=== PATIENT | female | born 1985 ===

== ENCOUNTER 2018-10-06 18:18 | Inpatient (IN) | payer OTHER ==
[2018-10-06] MEDS ORDERED: Morphine 4 MG/ML VIAL IVP STA (20:24)
[2018-10-06] MEDS ORDERED: Sodium Chloride 0.9% 1,000 ML IV STA (20:25)
[2018-10-06] MEDS ORDERED: Iohexol 300 100 ML IJ ONE (20:41)
[2018-10-06] MEDS ORDERED: Sodium Chloride 0.9% 50 ML IV ONE (20:42)
--- NOTE | 2018-10-06 20:48 | ED PDOC ---
HPI: Abdomen Time Seen by Provider: 10/06/18 20:07 Chief Complaint (Nursing): Alcohol Ingestion Chief Complaint (Provider): Abdominal Pain History Per: Patient History/Exam Limitations: no limitations Onset/Duration Of Symptoms: Days (x3) Current Symptoms Are (Timing): Still Present Additional Complaint(s): 33 y/o female with a PMHx of alcohol related pancreatitis presents to the ED for abdominal pain, onset three days ago. Patient reports pain is located in the epigastric area, radiating to the back. Patient reports abdominal pain is constant, worsening and associated with vomiting. Patient admits to drinking alcohol Thursday just prior to onset of symptoms Thursday morning. Denies diarrhea, fever and urinary symptoms. PMD: Howard Levi Past Medical History Reviewed: Historical Data, Nursing Documentation, Vital Signs Vital Signs: Last Vital Signs Temp 98.6 F 10/06/18 19:33 Pulse 130 H 10/06/18 19:33 Resp 20 10/06/18 19:33 BP 141/95 H 10/06/18 19:33 Pulse Ox 100 10/06/18 19:33 - Medical History PMH: Pancreatitis, Pneumonia Denies: Chronic Kidney Disease - Surgical History Surgical History: No Surg Hx - Family History Family History: States: Unknown Family Hx - Home Medications Home Medications: Ambulatory Orders Medication Instructions Recorded RX: No Known Home Med 10/07/18 - Allergies Allergies/Adverse Reactions: Allergies Allergy/AdvReac Type Severity Reaction Status Date / Time No Known Allergies Allergy Verified 09/11/15 16:48 Review of Systems ROS Statement: Except As Marked, All Systems Reviewed And Found Negative Gastrointestinal: Positive for: Vomiting, Abdominal Pain. Negative for: Diarrhea Genitourinary Female: Negative for: Dysuria, Frequency, Hematuria Physical Exam - Reviewed Nursing Documentation Reviewed: Yes Vital Signs Reviewed: Yes - Physical Exam Appears: Positive for: Uncomfortable Head Exam: Positive for: ATRAUMATIC Skin: Positive for: Normal Color, Warm, Dry Eye Exam: Positive for: Normal appearance, EOMI, PERRL ENT: Positive for: Normal ENT Inspection Neck: Positive for: Normal, Painless ROM Cardiovascular/Chest: Positive for: Tachycardia. Negative for: Murmur Respiratory: Positive for: Normal Breath Sounds. Negative for: Respiratory Distress Gastrointestinal/Abdominal: Positive for: Tenderness (Epigastric and LUQ tenderness) Back: Positive for: Normal Inspection. Negative for: L CVA Tenderness, R CVA Tenderness, Vertebral Tenderness Extremity: Positive for: Normal ROM. Negative for: Deformity Neurologic/Psych: Positive for: Alert, Oriented. Negative for: Motor/Sensory Deficits - Laboratory Results Result Diagrams: 10/08/18 04:30 10/08/18 04:30 - ECG O2 Sat by Pulse Oximetry: 100 (RA) Pulse Ox Interpretation: Normal Medical Decision Making Medical Decision Making: Time: 2044 Impression: Abdominal pain and vomiting Differentials include but not limited to acute pancreatitis, gastritis, calvin cysititis, other conditions are considered but not listed. Plan: -- CT Abd/Pelvis IV Contrast -- CMP -- Lipase -- ED Urine Dipstick -- CBC with Differentials -- Morphine 2 mg IVP -- Sodium chloride 0.9% IV 1000 mls/hr -- Zofran [address] RESULTS FINDINGS: LUNG BASES: PULMONARY BASE IS WELL AERATED. LIVER: LIVER, GALLBLADDER, SPLEEN, AND ADRENAL GLANDS UNREMARKABLE. GALLBLADDER AND BILE DUCTS: The gallbladder appears within normal limits. No radioopaque gallstones are seen. No biliary ductal dilatation is evident. PANCREAS: PANCREATIC HEAD AND UNCINATE PROCESS SURROUNDING INFLAMMATORY CHANGES AND INTERNAL EDEMATOUS CHANGES. SPLEEN: Unremarkable. ADRENAL GLANDS: Unremarkable. KIDNEYS, URETERS, AND BLADDER: The kidneys appear within normal limits. There is no hydronephrosis or hydroureter. No urinary calculi are seen. STOMACH AND BOWEL: VERY PROMINENT COLONIC SUBMUCOSAL FAT STRIPE SUGGESTING A COLITIS. APPENDIX: No evidence of acute appendicitis on CT examination. PERITONEUM: NO ASCITES. LYMPH NODES: No lymphadenopathy is evident. VASCULATURE: SPLENIC VEIN-PORTAL VEIN PATENT BONES: No aggressive appearing osseous lesion. No acute osseous pathology evident. IMPRESSION: 1. PANCREATIC HEAD AND UNCINATE PROCESS SURROUNDING INFLAMMATORY CHANGES AND INTERNAL EDEMATOUS CHANGES. 2. SPLENIC VEIN-PORTAL VEIN PATENT 3. VERY PROMINENT COLONIC SUBMUCOSAL FAT STRIPE SUGGESTING A COLITIS. 4. LIVER, GALLBLADDER, SPLEEN, AND ADRENAL GLANDS UNREMARKABLE. 5. NO ASCITES. 6. PULMONARY BASE IS WELL AERATED. 7. PANCREATITIS AND PANCREATIC HEAD AND UNCINATE PROCESS. Electronically signed on Oct 06, 2018 9:45:50 PM EST by: Nelson Gilmore M.D., Certified by [facility] [id number] Cruz for admission to his service as private patient. [address] aTy who agrees with management. Scribe Attestation: Documented by Nolvia Ibrahim, acting as a scribe for Mikaela Villareal MD. Provider Scribe Attestation: All medical record entries made by the Scribe were at my direction and personally dictated by me. I have reviewed the chart and agree that the record accurately reflects my personal performance of the history, physical exam, medical decision making, and the department course for this patient. I have also personally directed, reviewed, and agree with the discharge instructions and disposition. Disposition - Clinical Impression Clinical Impression: Alcohol abuse, Acute alcoholic pancreatitis - Patient ED Disposition Is Patient to be Admitted: Yes Discussed With : Oumar Cruz Doctor Will See Patient In The: Hospital Counseled Patient/Family Regarding: Studies Performed, Diagnosis - Disposition Disposition Time: 22:00 Condition: FAIR - Pt Status Changed To: Hospital Disposition Of: Inpatient - Admit Certification Admit to Inpatient:: After my assessment, the patient will require hospitalization for at least two midnights. This is because of the severity of symptoms shown, intensity of services needed, and/or the medical risk in this patient being treated as an outpatient. - POA Present On Arrival: None
[2018-10-06 20:51] LABS: BASO # 0.1 K/uL (0.0-0.2); BASO % 0.8 % (0.0-2.0); EOS # 0.1 K/uL (0.0-0.7); EOS % 0.6 % (0.0-4.0); HEMOGLOBIN 12.7 g/dL (12.0-16.0); LYMPH # 1.1 K/uL (1.0-4.3); MEAN CELL VOLUME 90.6 fl (81.0-99.0); MEAN CORPUSCULAR HEMOGLOBIN 29.8 pg (27.0-31.0); MEAN CORPUSCULAR HGB CONC 32.9 g/dL (33.0-37.0); MEAN PLATELET VOLUME 6.8 fl (7.2-11.7); MONO # 0.5 K/uL (0.0-0.8); MONO % 3.8 % (0.0-10.0); NEUT # 10.6 K/uL (1.8-7.0); NEUT % 85.8 % (50.0-75.0); PLATELET COUNT 307 K/uL (130-400); RBC 4.26 Mil/uL (3.80-5.20); RED CELL DISTRIBUTION WIDTH 14.9 % (11.5-14.5); WHITE BLOOD COUNT 12.4 K/uL (4.8-10.8)
[2018-10-06] MEDS ORDERED: Morphine 4 MG/ML VIAL ONE ×2 (20:56→23:20)
[2018-10-06 20:59] LABS: ALB/GLOB RATIO 1.1 (1.0-2.1); ALBUMIN 4.2 g/dL (3.5-5.0); ALT/SGPT 27 U/L (9-52); AST/SGOT 32 U/L (14-36); BLOOD UREA NITROGEN 8 mg/dl (7-17); CALCIUM 9.8 mg/dL (8.4-10.2); GFR NON-AFRICAN AMERICAN > 60; LIPASE 367 U/L (23-300)
[2018-10-06] MEDS ORDERED: Lactated Ringer's 1,000 ML IV SCH (22:30)
[2018-10-06 22:39] LABS: BANDS 1 % (0-2); BASOPHIL 1 % (0-2); EOSINOPHIL 1 % (0-7); LYMPHOCYTE 12 % (20-50); MONOCYTE 5 % (0-10); NEUTROPHIL 80 % (42-75); TOTAL CELLS COUNTED 100
[2018-10-06 22:40] LABS: ANISOCYTOSIS SLIGHT; HYPOCHROMIC SLIGHT; LARGE PLATELETS PRESENT; PLATELET ESTIMATE NORMAL (NORMAL)
[2018-10-06] MEDS ORDERED: Morphine 4 MG/ML VIAL IVP ONE (23:09)
[2018-10-07] MEDS: Lactated Ringer's 1,000 ML IV SCH ×4 (01:49→22:10)
[2018-10-07] MEDS ORDERED: Pneumococcal 23-Valent Vaccine IM ONE (06:00)
[2018-10-07] MEDS ORDERED: Influenza Vaccine (5 YR UP)/PF 60 MCG/0.5 ML SYR IM ONE (06:00)
[2018-10-07 06:09] LABS: HEMOGLOBIN 10.8 g/dL (12.0-16.0); MEAN CELL VOLUME 91.6 fl (81.0-99.0); MEAN CORPUSCULAR HEMOGLOBIN 30.2 pg (27.0-31.0); RBC 3.58 Mil/uL (3.80-5.20)
[2018-10-07 06:26] LABS: ALBUMIN 3.6 g/dL (3.5-5.0); ALT/SGPT 28 U/L (9-52); AMYLASE 81 U/L (30-110); AST/SGOT 25 U/L (14-36); BLOOD UREA NITROGEN 5 mg/dl (7-17); CALCIUM 9.1 mg/dL (8.4-10.2); GFR NON-AFRICAN AMERICAN > 60; HDL CHOLESTEROL 100 MG/DL (30-70); LIPASE 224 U/L (23-300)
[2018-10-07 06:29] LABS: LDL CHOLESTEROL 95 mg/dL (0-129)
--- NOTE | 2018-10-07 07:38 | CP.PCM.HP ---
History of Present Illness - History of Present Illness History of Present Illness: Case seen and examined with Dr Cruz today 33 y/o female with a PMHx of alcohol related pancreatitis and pneumonia in the past presents to the ED c/o abdominal pain duration x 4 days. Patient reports pain is located in the epigastric area, radiating to the back. She endorses the pain is constant, worsening over time and associated with nbnb vomiting. As per patient she drank few shots on Thursday night, day after sx started. Otherwise she denies chills, recent fever, chest pain or sob, no urinary sx or change in BM. PMD: Dr Levi Present on Admission - Present on Admission Any Indicators Present on Admission: No Review of Systems - Review of Systems All systems: reviewed and no additional remarkable complaints except (HPI) Past Patient History - Past Medical History & Family History Past Medical History?: Yes - Past Social History Smoking Status: Never Smoked - CARDIAC Hx Cardiac Disorders: No - PULMONARY Hx Respiratory Disorders: Yes - NEUROLOGICAL Hx Neurological Disorder: No - HEENT Hx HEENT Problems: No - RENAL Hx Chronic Kidney Disease: No - ENDOCRINE/METABOLIC Hx Endocrine Disorders: No - HEMATOLOGICAL/ONCOLOGICAL Hx Blood Disorders: No - INTEGUMENTARY Hx Dermatological Problems: No - MUSCULOSKELETAL/RHEUMATOLOGICAL Hx Musculoskeletal Disorders: No Hx Falls: No - GASTROINTESTINAL Hx Pancreatitis: Yes - GENITOURINARY/GYNECOLOGICAL Hx Genitourinary Disorders: No - PSYCHIATRIC Hx Psychophysiologic Disorder: No Hx Substance Use: No - SURGICAL HISTORY Hx Surgeries: No - ANESTHESIA Hx Anesthesia: Yes Hx Anesthesia Reactions: No Meds Allergies/Adverse Reactions: Allergies Allergy/AdvReac Type Severity Reaction Status Date / Time No Known Allergies Allergy Verified 09/11/15 16:48 Physical Exam - Constitutional Appears: No Acute Distress - Head Exam Head Exam: NORMAL INSPECTION - Respiratory Exam Respiratory Exam: Clear to Auscultation Bilateral, NORMAL BREATHING PATTERN - Cardiovascular Exam Cardiovascular Exam: REGULAR RHYTHM, +S1, +S2 - GI/Abdominal Exam GI & Abdominal Exam: Normal Bowel Sounds, Tenderness (on epigastrium and upper L quadrant). absent: Distended, Guarding - Extremities Exam Extremities exam: Negative for: pedal edema - Neurological Exam Neurological exam: Alert, CN II-XII Intact, Oriented x3 - Skin Skin Exam: Dry, Warm Results - Vital Signs Recent Vital Signs: Last Vital Signs Temp 98.7 F 10/07/18 05:12 Pulse 103 H 10/07/18 05:12 Resp 18 10/07/18 05:12 BP 146/100 H 10/07/18 05:12 Pulse Ox 98 10/07/18 05:12 - Labs Result Diagrams: 10/07/18 04:30 10/07/18 04:30 Labs: Laboratory Results - last 24 hr 10/06/18 10/06/18 10/07/18 20:45 20:45 04:30 WBC 12.4 H D 10.0 RBC 4.26 3.58 L Hgb 12.7 10.8 L Hct 38.6 32.8 L MCV 90.6 91.6 MCH 29.8 30.2 MCHC 32.9 L 33.0 RDW 14.9 H 15.0 H Plt Count 307 257 MPV 6.8 L Neut % (Auto) 85.8 H Lymph % (Auto) 9.0 L Floyd % (Auto) 3.8 Eos % (Auto) 0.6 Baso % (Auto) 0.8 Neut # (Auto) 10.6 H Lymph # (Auto) 1.1 Floyd # (Auto) 0.5 Eos # (Auto) 0.1 Baso # (Auto) 0.1 Neutrophils % (Manual) 80 H Band Neutrophils % 1 Lymphocytes % (Manual) 12 L Monocytes % (Manual) 5 Eosinophils % (Manual) 1 Basophils % (Manual) 1 Platelet Estimate Normal Large Platelets Present Hypochromasia (manual) Slight Anisocytosis (manual) Slight Sodium 137 Potassium 4.0 Chloride 103 Carbon Dioxide 24 Anion Gap 14 BUN 8 Creatinine 0.7 Est GFR ( Amer) > 60 Est GFR (Non-Af Amer) > 60 Random Glucose 118 H Calcium 9.8 Total Bilirubin 0.7 AST 32 ALT 27 Alkaline Phosphatase 139 H Total Protein 8.2 Albumin 4.2 Globulin 3.9 Albumin/Globulin Ratio 1.1 Triglycerides Cholesterol LDL Cholesterol Direct HDL Cholesterol Amylase Lipase 367 H Vitamin B12 10/07/18 04:30 WBC RBC Hgb Hct MCV MCH MCHC RDW Plt Count MPV Neut % (Auto) Lymph % (Auto) Floyd % (Auto) Eos % (Auto) Baso % (Auto) Neut # (Auto) Lymph # (Auto) Floyd # (Auto) Eos # (Auto) Baso # (Auto) Neutrophils % (Manual) Band Neutrophils % Lymphocytes % (Manual) Monocytes % (Manual) Eosinophils % (Manual) Basophils % (Manual) Platelet Estimate Large Platelets Hypochromasia (manual) Anisocytosis (manual) Sodium 137 Potassium 3.6 Chloride 105 Carbon Dioxide 25 Anion Gap 11 BUN 5 L Creatinine 0.7 Est GFR ( Amer) > 60 Est GFR (Non-Af Amer) > 60 Random Glucose 114 H Calcium 9.1 Total Bilirubin 0.7 AST 25 ALT 28 Alkaline Phosphatase 116 Total Protein 7.1 Albumin 3.6 Globulin 3.5 Albumin/Globulin Ratio 1.0 Triglycerides 95 D Cholesterol 189 LDL Cholesterol Direct 95 HDL Cholesterol 100 H Amylase 81 Lipase 224 Vitamin B12 508 Assessment & Plan - Assessment and Plan (Free Text) Assessment: 33 yo female patient with PMH of alcohol related pancreatitis admitted due to acute pancreatitis Plan: - stable - NPO - IV fluids - leukocytosis improved - lipase improved - GI consulted - pain control - f/u abd US - labs in am - rest of plan as ordered.
[2018-10-07] MEDS: Enoxaparin 40 mg Syringe SC SCH (10:26)
--- NOTE | 2018-10-07 11:06 | CT ---
Date of service: 10/06/2018 PROCEDURE: CT Abdomen and Pelvis with contrast HISTORY: epigastric and back pain COMPARISON: Comparison is made with the previous study dated 01/15/2016 TECHNIQUE: Contrast dose: 95 mL of Omnipaque 300. Axial and reformatted coronal and sagittal CT images of the abdomen and pelvis were obtained after IV contrast administration. Radiation dose: Total exam DLP = 802.22 mGy-cm. This CT exam was performed using one or more of the following dose reduction techniques: Automated exposure control, adjustment of the mA and/or kV according to patient size, and/or use of iterative reconstruction technique. FINDINGS: LOWER THORAX: Unremarkable. LIVER: Mild hepatomegaly with findings suggestive of [id number] hepatic steatosis. GALLBLADDER AND BILE DUCTS: No CT evidence of cholecystitis or radiodense gallstones. PANCREAS: The pancreatic head there is mild enlargement of the pancreatic head demonstrate heterogeneous enhancement and attenuation and surrounding with inflammatory changes. Findings suspicious for pancreatitis. The possibility of underlying lesion at the pancreatic head is not totally excluded. The main pancreatic duct is not dilated. SPLEEN: Unremarkable. ADRENALS: Unremarkable. No mass. KIDNEYS AND URETERS: Unremarkable. No hydronephrosis. No solid mass. VASCULATURE: Unremarkable. No aortic aneurysm. No aortic atherosclerotic calcification or mural plaque present. BOWEL: The large bowel wall demonstrate diffuse wall thickening versus incomplete distention. No obstruction. No gross mural thickening. APPENDIX: No evidence of appendicitis. PERITONEUM: Unremarkable. No free fluid. No free air. LYMPH NODES: Unremarkable. No enlarged lymph nodes. BLADDER: Unremarkable. REPRODUCTIVE: Unremarkable. BONES: No acute fracture. OTHER FINDINGS: None. IMPRESSION: Mild enlargement of the pancreatic head demonstrate heterogeneous enhancement and surrounding with inflammatory changes suspicious for pancreatitis. The main pancreatic duct is not dilated. If clinically warranted further assessment by MRCP may be obtained. Large bowel wall thickening versus incomplete distension. Correlate clinically for colitis. Otherwise no evidence of acute pathology in the abdomen and pelvis. Preliminary report was submitted by [facility] Radiology contains concordant findings.
--- NOTE | 2018-10-07 11:35 | US ---
Date of service: 10/06/2018 HISTORY: epigastric pain COMPARISON: Comparison is made with the previous same-day CT of the abdomen and pelvis. Comparison is also made with the previous ultrasound of the abdomen dated 01/15/2016 TECHNIQUE: Sonographic evaluation of the right upper quadrant of the abdomen. FINDINGS: LIVER: Measures 15.7 cm in length. Normal echogenicity of the liver parenchyma. No mass. No intrahepatic bile duct dilatation. GALLBLADDER: Unremarkable. No gallstones. COMMON BILE DUCT: Measures 4.1 mm. No stones. No dilatation. PANCREAS: The pancreas is obscured by overlying bowel gas. RIGHT KIDNEY: Measures 9.5 x 5.8 x 5 cm in length. Normal echogenicity. No calculus, mass, or hydronephrosis. AORTA: No aneurysmal dilatation. IVC: Unremarkable. OTHER FINDINGS: None . IMPRESSION: No evidence of cholelithiasis or cholecystitis. The pancreas is obscured by overlying bowel and stomach gas. Preliminary report [facility] Radiology contains concordant findings.
--- NOTE | 2018-10-08 02:28 | CON ---
DATE: 10/07/2018 REFERRING PHYSICIAN: Oumar Cruz MD REASON FOR CONSULTATION: Abdominal pain. HISTORY OF PRESENT ILLNESS: This is a pleasant 33-year-old female with a history of episodes in the past, comes in for chest pain and epigastric discomfort for the past three to four days. No nausea or vomiting. The pain is improving. Lying in bed, in no apparent distress. PAST MEDICAL HISTORY: As above. SURGICAL HISTORY: As above. MEDICATIONS: Have been reviewed. REVIEW OF SYSTEMS: All other systems have been reviewed and negative apart from the HPI. PHYSICAL EXAMINATION: VITAL SIGNS: Here in the hospital grossly unremarkable. LUNGS: Coarse breath sounds bilaterally. HEART: S1 and S2. Regular rate and rhythm. No murmurs appreciated. ABDOMEN: Soft and nontender. Bowel sounds present. No rebound. No guarding. RECTAL: Deferred. EXTREMITIES: Pulses present bilaterally. SKIN: Warm, dry, and intact. NEUROLOGIC: A and O x3. LABORATORY DATA: All labs and radiology have been reviewed. Labs include a WBC of 10, down from 12.1; hemoglobin of 10.8, hematocrit 32.8. Lipase is 267, down from 334. Ultrasound and CAT scan are reviewed. ASSESSMENT AND PLAN: This is a 33-year-old female with alcoholic pancreatitis. From gastrointestinal standpoint, liquid diet as tolerated. Thank you for the consult. Esau Tay MD/ PhD cc: Oumar Cruz MD
[2018-10-08] MEDS: Lactated Ringer's 1,000 ML IV SCH (05:18)
[2018-10-08 05:28] LABS: HEMOGLOBIN 10.2 g/dL (12.0-16.0); MEAN CELL VOLUME 91.3 fl (81.0-99.0); MEAN CORPUSCULAR HEMOGLOBIN 30.5 pg (27.0-31.0); MEAN CORPUSCULAR HGB CONC 33.4 g/dL (33.0-37.0); RBC 3.35 Mil/uL (3.80-5.20); RED CELL DISTRIBUTION WIDTH 14.4 % (11.5-14.5); WHITE BLOOD COUNT 5.8 K/uL (4.8-10.8)
[2018-10-08 05:54] LABS: ALBUMIN 3.4 g/dL (3.5-5.0); ALT/SGPT 30 U/L (9-52); AMYLASE 64 U/L (30-110); AST/SGOT 52 U/L (14-36); BLOOD UREA NITROGEN 4 mg/dl (7-17); CALCIUM 9.1 mg/dL (8.4-10.2); GFR NON-AFRICAN AMERICAN > 60; LIPASE 178 U/L (23-300)
--- NOTE | 2018-10-08 08:26 | PN ---
DATE: 10/08/2018 SUBJECTIVE: The patient is seen and examined. Interim events noted. Consults noted and appreciated. Gastroenterology followup and intervention noted and appreciated. Case was discussed with [employer] yesterday. The patient feels much better. Abdominal pain resolved. The patient tolerated liquid diet. No chest pain. No shortness of breath. No abdominal pain. PHYSICAL EXAMINATION: GENERAL: The patient is in no acute distress. VITAL SIGNS: Stable. HEART: S1, S2, normal and regular. LUNGS: Good bilateral air exchange. ABDOMEN: Soft, nontender. No sign of acute abdomen. No guarding, no rigidity, no rebound. Bowel sounds are present and normal. EXTREMITIES: No edema. No calf swelling. No tenderness. No acute ischemia. CENTRAL NERVOUS SYSTEM EXAM: Essentially unchanged. DIAGNOSTIC DATA: Available diagnostic data reviewed. Telemetry monitoring does not show significant arrhythmias. ASSESSMENT AND PLAN: Overall, the patient's general medical condition is stable. Plan as ordered. Oumar Cruz MD
[2018-10-08] MEDS: Enoxaparin 40 mg Syringe SC SCH (08:58)
[2018-10-08 16:14] VITALS: BP 95/61; PULSE 109; RESP 16; TEMP 98.6; O2SAT 96
== END 2018-10-08 16:27 | disposition home or self-care (01) | DRG 204 ==
LOC: H.ER 18:18 → H.ERHOLD 22:06 → H.TEL 10-07 01:13
PROVIDERS: ADMIT Internal Medicine; ATTEND Internal Medicine
PROC: 3E02340 Introduction of Influenza Vaccine into Muscle, Percutaneous Approach (ICD-10-PCS; principal; 2018-10-07)
PROC: 3E0234Z Introduction of Serum, Toxoid and Vaccine into Muscle, Percutaneous Approach (ICD-10-PCS; 2018-10-07)
DX: K85.20 Alcohol induced acute pancreatitis without necrosis or infection (principal); F10.10 Alcohol abuse, uncomplicated; Z87.01 Personal history of pneumonia (recurrent); Z23 Encounter for immunization